=== PATIENT | male | born 1965 ===

== ENCOUNTER 2025-03-25 10:07 | Outpatient (CLI) | payer OTHER ==
[~2025-03-25] VITALS: Ht 180.3 cm; Wt 104.3 kg
== END 2025-03-25 17:00 | disposition home or self-care (01) ==
LOC: Rad HDHVI 10:07
PROVIDERS: ATTEND Internal Medicine Cardiovascular Disease
DX: I49.3 Ventricular premature depolarization (principal); R00.0 Tachycardia, unspecified; Z13.6 Encounter for screening for cardiovascular disorders; I10 Essential (primary) hypertension; E11.21 Type 2 diabetes mellitus with diabetic nephropathy; J45.909 Unspecified asthma, uncomplicated; E78.00 Pure hypercholesterolemia, unspecified; R07.89 Other chest pain; R94.31 Abnormal electrocardiogram [ECG] [EKG]
CPT/HCPCS: 78452; 93017; A9500; 96374